=== PATIENT | female | born 1990 | race Caucasian/White ===

== ENCOUNTER → 2020-03-04 | Outpatient (CLI) | payer OTHER ==
[~2020-03-04] MED LIST: LEXAPRO 10MG10 MG PO; NORCO 325 MG-7.1 TAB PO; PRENATAL1 TA1 PO; ZYRTEC 10MG10 MG PO
== END ==
LOC: ZCOL.LAB 08:00
DX: Z20.822 Contact with and (suspected) exposure to COVID-19 (principal)

== ENCOUNTER 2020-03-08 06:56 | Inpatient (IN) | payer OTHER ==
[2020-03-08] VITALS (63 sets, daily range): BP systolic 85–141; BP diastolic 45–81; PULSE 59–106; TEMP 97.7–98.7
[~2020-03-08] VITALS: Ht 172.8 cm; Wt 114.1 kg
[~2020-03-08 06:56] MED LIST changes: -LEXAPRO 10MG10 MG PO; -ZYRTEC 10MG10 MG PO
[2020-03-08] MEDS ORDERED: LEXAPRO 10MG10 MG PO (08:13)
[2020-03-08] MEDS ORDERED: ZYRTEC 10MG10 MG PO (08:14)
[2020-03-08 08:24] LABS: BASO % 0.4 % (0.0-2.0); EOS # 0.3 (0.0-0.7); EOS % 2.6 % (0-4.0); GRAN # 7.3 (1.4-6.5); GRAN % 67.4 % (42.2-75.2); HEMOGLOBIN 10.7 g/dl (12.5-16.0); LYMPH # 2.2 (1.2-3.4); LYMPH % 20.5 % (20.0-51.0); MEAN CELL VOLUME 89 fl (80.0-100.0); MEAN CORPUSCULAR HEMOGLOBIN 29 pg (27.0-31.0); MEAN CORPUSCULAR HGB CONC 33 g/dl (33.0-37.0); MEAN PLATELET VOLUME 9.8 fl (7.4-10.4); MONO # 0.9 (0.1-0.6); MONO % 8.6 % (1.7-9.3); PLATELET COUNT 306 K/mm3 (130-400); RED BLOOD COUNT 3.67 M/mm3 (4.10-5.30); REDCELL DISTRIBUTION WIDTH-CV 13.9 % (11.5-14.5)
[2020-03-08 08:26] LABS: HEMATOCRIT 32.6 % (37.0-47.0)
--- NOTE | 2020-03-08 09:15 | NUR ---
0915- THIS RN IN ROOM WITH PATIENT. PATIENT VERY UNCOMFORTABLE WITH CONTRACTIONS AND WAITING FOR EPIDURAL. THIS RN REMAINS AT BEDSIDE TO ASSIST PATIENT WITH BREATHING EXERCISES DURING CONTRACTIONS. 0920- EFM TRACING INTERMITTENTLY DUE TO MATERNAL SIZE AND POSITION AND THE PATIENT NOT BEING ABLE TO SIT STILL DURING CONTRACTIONS. THIS RN REMAINS AT BEDSIDE ADJUSTING EFM TO TRACE. 0930- DAKOTAH BAILEY TO BEDSIDE FOR EPIDURAL PLACEMENT. THIS RN HELPS PATIENT TO SITTING POSITION ON THE SIDE OF BED. EFM TRACING INTERMITTENTLY DUE TO MATERNAL POSITION AND SIZE. THIS RN REMAINS AT BEDSIDE ADJUSTING MONITORS TO TRACE FHT. 0940- SINGLE SHOT, SEE ANESTHESIA RECORD. 0941- TEST DOSE, SEE ANESTHESIA RECORD. 0945- THIS RN HELPS PATIENT TO LL POSITION IN THE BED AFTER EPIDURAL IS PLACED. PATIENT TOLERATED PROCEDURE WELL. THIS RN CONTINUES TO ADJUST MONITORS TO GET FHR TRACING. 0950- EFM AND TOCO TRACING. THIS RN REMAINS AT BEDSIDE TO MONITOR PATIENT AND FHR. 1001- THIS RN NOTICES WHAT LOOKS TO BE A LATE ON THE FHR TRACING. THIS RN REMAINS AT BEDSIDE MONITORING FHR TRACING. 1006- FHR TRACING INTERMITTENTLY. THIS RN REMAINS AT BEDSIDE ADJUSTING MONITORS. 1020- THIS RN PLACES ARNOLD AND SVE IS NOTED TO BE 4/70/-2. FHR TRACING INTERMITTENTLY DUE TO MATERNAL SIZE AND POSITION. THIS RN CALLS ANOTHER RN FOR HELP REPOSITIONING PATIENT AND WITH FHR TRACING. 1030- INTERNAL SCALP ELETRODE PLACED AND TRACING. RECURRENT LATES NOTED AFTER FSE IS PLACED. THIS RN CONTINUES TO ADJUST PATIENT POSITION, OPENS FLUIDS UP WIDE OPEN. PATIENT IS MOVED FROM LL, TO WR POSITION. THEN BACK TO WL POSITION. THEN TO LL, AND THEN BACK TO RL POSITION. 1056- FIRST TIME NO LATE WAS NOTED AFTER CONTRACTIONS. THIS RN REMAINS AT BEDSIDE FOR NEXT CONTRACTIONS. 1058- NO LATE NOTED AFTER THIS CONTRACTIONS. THE RN EXPLAINS TO THE PATIENT AND SPOUSE WATCHING THE STRIP FOR THE NEXT 20 MINUTES OR SO AND IF RECURRENT LATES CONTINUE, THE DOCTOR MAY HAVE TO COME IN AND EVALUATE. ADVISED NOT MESSING WITH THE PITOCIN AND GIVING PATIENT AND FHR A BREAK AND A CHANGE TO RECOVER. PATIENT VERBALIZED UNDERSTANDING WITH NO FURTHER QUESTIONS OR CONCERNS. CALL LIGHT WITHIN REACH. VITALS STABLE AND FHR TRACING STABLE.
--- NOTE | 2020-03-08 12:30 | NUR ---
1230- THIS RN TO BEDSIDE TO DUE A LARGE AMOUNT OF ARTIFACT NOTED ON FHR TRACING. RN TO BEDSIDE AND ASSESSED THE FSE AND IT WAS INTACT. THIS RN DID A SVE AND THE FSE WAS STILL ON BABY'S HEAD BUT WAS NOW BEING PINCHED BY THE CERVIX. EVER BOLIVAR, CHARGE TO BEDSIDE TO HELP TROUBLE SHOOT. EXTERNAL WAS PLACED AND HELD UNTIL A NEW FSE COULD BE ATTACHED. NEW FSE ATTACHED BY AMBER Austin RN AT 1244 AND TRACING WELL.
--- NOTE | 2020-03-08 14:09 | NUR ---
1409- DEEP VARIABLE NOTED ON FHR TRACING DOWN TO THE 85 RANGE. THIS RN TO BEDSIDE IMMEDIATELY. 140- SVE REVEALS /-1 WITH BLOODY SHOW. PATIENT TURNED FROM BRPB, LL TO RL, AND WHEN FHR TONES DIDN'T COME BACK UP, TURNED TO LL. TONES NOT BETTER. PATIENT REPOSITIONED TO WL. FHR TRACING BACK UP AND IN THE 125 RANGE. POSITIONED PATIENT BRPB WL.
--- NOTE | 2020-03-08 18:55 | NUR ---
2 consecutive late decelerations down to 100 bpm. Pt repositioned to wedge right. Winifred Bhatia CRNA at bedside to dose patient.
--- NOTE | 2020-03-08 19:10 | NUR ---
Recurrent late decelerations down to 90 bpm. SVE /-1. Pt repositioned to wedge left. Pt and spouse updated on plan of care.
--- NOTE | 2020-03-08 19:39 | NUR ---
1914 - Pt continues to have late decelerations, pitocin decreased to 5 mu/min. Repositioned to semi fowlers. 1919 - Dr. Carrera at bedside, reviewing FHR tracing. SVE complete, pt encouraged to push with contraction. 1922 - 400 mL emesis at this time. Nursery RN called to bedside. Merritt catheter removed, 50mL urine removed. 1924 - Room set up for delivery, EVER Parks at bedside. Dr. Carrera gowned and gloved at perineum. Pt positined into footplates and pushing with contractions. Dr. Carrera discussing vacuum extraction because of pushing efforts and FHR decelerations, pt agreeable to plan. Much artifact on FSE due to emesis and pushing. Unable to determine baseline. 1927 - FSE removed, external US applied. FHR audible in 150s. 1929 - Vacuum applied successfully, pumped to green, gentle traction applied by Dr. Carrera while pt pushing. Vacuum off after contraction 1933 - Vacuum applied, pumped to green, gentle traction applied by Dr. Carrera while pt pushing. Little to no movement with vacuum and pushes. Vacuum off. Dr. Carrera discussing section if no movement with next push. Pt and spouse agreeable to plan. 1934 - section called. Pt prepped for OR. Anesthesia and home theatre technician notified. 1938 - Attempting to handhold US for FHR. Dr. Carrera to room states surgery is emergent and we need to go to OR. Monitors removed to OR. 1940 - in OR. Verbal orders to replace merritt catheter after surgery. 1944 - Surgery start. No initial sponge and sharp count completed due to urgency of care. Will need post op X-ray.
[2020-03-09 00:15] VITALS: BP 100/58; PULSE 66
--- NOTE | 2020-03-09 02:15 | NUR ---
Pt able to lift and hold each leg off of bed for 5 seconds. Pt up to bathroom with standby assistance. Adame catheter removed. Pericare provided and education given. Clean gown on. Mesh panties and peripad applied. New linens on bed. Pt back to bed independently, abdominal binder applied. Plan of care reviewed. Bed in low and locked position. Call light within reach.
[2020-03-09 05:35] VITALS: BP 112/67; PULSE 75; TEMP 97.8
--- NOTE | 2020-03-09 09:12 | NUR ---
Initial visit; Parents thanked Electrical Panel Builder for offering congratulations and God's blessings for the of their son. Electrical Panel Builder thanked family for choosing [facility] for choosing [facility].
[2020-03-09 09:30] VITALS: BP 111/52; PULSE 85; TEMP 97.8
[2020-03-09] MEDS ORDERED: MOTRIN 800800 MG/TAB PO (13:01)
[2020-03-09] MEDS ORDERED: PERCOCET 325 MG1 TA2 PO (13:01)
--- NOTE | 2020-03-09 17:03 | NUR ---
1649 DR LIRA NOTIFIED THAT PERCOCET WAS GIVEN 2HOURS EARLY. DR LIRA STATES IT IS FINE JUST TO TELL PATIENT TO NOT TAKE PERCOCET FOR A WHILE AND TAKE IBUPROFEN FOR NOW. ALSO ENSURE THAT PATIENT KNOWS TO STAY AWAY FROM TYLENOL. 1654 PATIENT NOTIFIED OF PERCOCET GIVEN EARLY. PATIENT VERBALIZED UNDERSTANDING NOT TO TAKE PERCOCET FOR AWHILE AND TO TAKE IBUPROFEN INSTEAD. PATIENT ALSO VERBALIZED UNDERSTANDING NO TO TAKE ANY TYLENOL WITH PERCOCET.
--- NOTE | 2020-03-09 17:05 | NUR ---
1647 DISCHARGE INSTRUCTIONS REVIEWED WITH PATIENT. PATIENT WILL NOTIFY THIS RN WHEN HER HAS RETURNED TO GET HER.
--- NOTE | 2020-03-09 17:12 | NUR ---
1710 ALL PERSONAL BELONGINGS GATHERED FROM PATIENT ROOM. PATIENT LEFT VIA WHEELCHAIR AND IN NO APPARENT DISTRESS. PATIENT ACCOMPANIED BY SPOUSE AND NURSING STAFF.
== END 2020-03-09 17:10 | disposition home or self-care (01) | DRG 788 ==
LOC: LDR 06:56 → OB 06:56
PROVIDERS: ADMIT Obstetrics & Gynecology
PROC: 10D00Z1 Extraction of Products of Conception, Low, Open Approach (ICD-10-PCS; principal; 2020-03-08)
PROC: 10907ZC Drainage of Amniotic Fluid, Therapeutic from Products of Conception, Via Natural or Artificial Opening (ICD-10-PCS; 2020-03-08)
PROC: 3E033VJ Introduction of Other Hormone into Peripheral Vein, Percutaneous Approach (ICD-10-PCS; 2020-03-08)
DX: O77.9 Labor and delivery complicated by fetal stress, unspecified (principal); O99.214 Obesity complicating childbirth; E66.9 Obesity, unspecified; O99.344 Other mental disorders complicating childbirth; F41.9 Anxiety disorder, unspecified; Z3A.39 39 weeks gestation of pregnancy; Z37.0 Single live birth
CPT/HCPCS: J0690; J1885; J2370; J2400; J2405; J2590; J2795; J3010; J7120